=== PATIENT | female | born 1990 | race Caucasian/White ===

== ENCOUNTER 2023-03-30 03:16 | Emergency (ER) | payer OTHER, SELFPAY ==
[2023-03-30] VITALS (15 sets, daily range): BP systolic 124–138; BP diastolic 71–82; PULSE 99–169; RESP 16–43; TEMP 36.8–37.1; O2SAT 92–99; BMI 41.6
--- NOTE | 2023-03-30 03:21 | ED_ITS ---
HPI - General Adult General Chief complaint: Altered Mental Status Stated complaint: rapid HR, chest burn, oral THC Time Seen by Provider: 03/30/23 03:21 History of Present Illness HPI narrative: 33-year-old woman with a history of PTSD who reportedly had 2 alcohol drinks this evening, was doing some stretching felt a pop in her back laid down and her noted that her heart rate was in the 160 range. She reportedly had 60 mg of THC in drop or form earlier this evening which reportedly is not unusual. She presents with dramatic emotional lability, tachycardia, seems to be responding to internal stimuli. Heart rate 110-160 based on her emotional state at the moment. There was no signs of physical harm. Related Data Allergies Allergy/AdvReac Type Severity Reaction Status Date / Time amoxicillin Allergy Verified 03/30/23 04:18 Review of Systems Review of Systems Narrative: Pertinent positive and negative findings as per HPI Patient History Medical History (Updated 03/30/23 @ 04:38 by Ariella Jones MD) Depression with anxiety PCOS (polycystic ovarian syndrome) Chronic GERD PTSD (post-traumatic stress disorder) POTS (postural orthostatic tachycardia syndrome) Exam Initial Vital Signs Initial Vital Signs: Vital Signs Temperature 98.8 F 03/30/23 03:15 Pulse Rate 136 H 03/30/23 03:15 Respiratory Rate 24 03/30/23 03:15 Blood Pressure 132/82 03/30/23 03:15 Pulse Oximetry 96 03/30/23 03:15 Oxygen Delivery Method Room Air 03/30/23 03:15 General: BMI of 41.6, unable to sit still with dramatic effective behavior with complete range of emotions demonstrated within 30 seconds and then repeated HEENT: Moist mucous membranes, normal sclera with reactive pupils, Respiratory: Lungs are clear to auscultation, no wheezing no rales no rhonchi. Full and symmetrical air movement Cardiac: Mild tachycardia but no murmurs are appreciated Abdomen: Soft, nontender, good bowel tones, no flank pain Skin: Warm and dry, no rashes Neurologic: Grossly neurologically intact with no obvious asymmetries or abnormalities Extremities: No trauma, well perfused Psych: Emotional dysautonomia going from sobbing, to joyful ecstasy to anger to embarrassment to fear all within seconds of each other than recycling again Course Orders Ordered: Discontinued Medications Diazepam (Diazepam 10 Mg/2 Ml Syringe) 5 mg IV NOW ONE Stop: 03/30/23 03:32 Last Admin: 03/30/23 03:51 Dose: 5 mg Documented By: JACINDA Diazepam (Diazepam 10 Mg/2 Ml Syringe) 5 mg IV NOW ONE Stop: 03/30/23 04:32 Last Admin: 03/30/23 04:38 Dose: 5 mg Documented By: JACINDA Sodium Chloride (Normal Saline 0.9%) 1,000 mls @ 1,000 mls/hr IV BOLUS ONE Stop: 03/30/23 04:30 Last Infusion: 03/30/23 05:19 Dose: Infused Documented By: Admin: 03/30/23 03:51 Dose: 1,000 mls/hr Documented By: JACINDA Vital Signs Vital signs: Vital Signs - 8 hr 03/30/23 03:15 03/30/23 03:28 03/30/23 03:29 Temperature 98.8 F Pulse Rate 136 H 150 H Respiratory Rate 24 37 H Blood Pressure 132/82 124/72 Pulse Oximetry 96 98 Oxygen Delivery Method Room Air 03/30/23 03:29 03/30/23 03:30 03/30/23 03:58 Temperature Pulse Rate 167 H 169 H 130 H Respiratory Rate 42 H 43 H 32 H Blood Pressure Pulse Oximetry 95 97 95 Oxygen Delivery Method 03/30/23 03:58 03/30/23 04:00 03/30/23 04:00 Temperature Pulse Rate 129 H Respiratory Rate 19 Blood Pressure 129/76 130/73 Pulse Oximetry 93 Oxygen Delivery Method 03/30/23 04:30 03/30/23 04:30 03/30/23 05:00 Temperature Pulse Rate 127 H 136 H Respiratory Rate 18 20 Blood Pressure 135/71 Pulse Oximetry 96 94 Oxygen Delivery Method 03/30/23 05:30 03/30/23 06:00 Temperature Pulse Rate 121 H 114 H Respiratory Rate 18 19 Blood Pressure Pulse Oximetry 92 92 Oxygen Delivery Method Room Air Medical Decision Making Lab Data 03/30/23 04:00 03/30/23 04:00 Labs: Lab Results 03/30/23 03/30/23 Range/Units 04:00 05:18 WBC 10.2 (4.5-11.0) X10^3/uL RBC 4.50 (4.0-5.2) X10^6/uL Hgb 12.7 (12.0-16.0) g/dL Hct 38.1 (36-46) % MCV 84.7 (80-100) fL MCH 28.2 (26-34) PG MCHC 33.3 (30-36) % RDW 14.2 (11.6-14.8) % Plt Count 328 (150-400) X10^3/uL Neut % (Auto) 71.5 (50-75) % Lymph % (Auto) 18.9 L (25-40) % [place] % (Auto) 4.3 (3-14) % Eos % (Auto) 3.5 (2-4) % Baso % (Auto) 1.8 (0-2) % Neut # (Auto) 7300 H (5958-4696) /uL Lymph # (Auto) 1900 (5752-3464) /uL [place] # (Auto) 400 (0-900) /uL Eos # (Auto) 400 (0-450) /uL Baso # (Auto) 200 H (0-100) /uL Sodium 138 (137-145) mmol/L Potassium 4.0 (3.4-5.1) mmol/L Chloride 105 (98-107) mmol/L Carbon Dioxide 25 (22-32) mmol/L BUN 12 (7-17) mg/dL Creatinine 0.66 (0.52-1.04) mg/dL Estimated GFR > 60 (>60) mL/min BUN/Creatinine Ratio 18.2 (6-22) Glucose 140 H (70-100) mg/dL Calcium 9.4 (8.4-10.2) mg/dL Total Bilirubin 0.3 (0.2-1.3) mg/dL AST 25 (14-36) IU/L ALT 32 (<35) IU/L Alkaline Phosphatase 45 (38-126) U/L Total Protein 7.7 (6.3-8.2) g/dL Albumin 4.2 (3.5-5.0) g/dL Globulin 3.5 (1.7-4.1) g/dL Albumin/Globulin Ratio 1.2 (1.0-2.8) U Opiates 300ng/mL cut Negative (Negative) Ur Oxycodone Screen Negative (Negative) Urine Methadone Screen Negative (Negative) Ur Barbiturates Screen Negative (Negative) U Tricyclic Antidepress Negative (Negative) Ur Phencyclidine Scrn Negative (Negative) Ur Amphetamines Screen Negative (Negative) U Methamphetamines Scrn Negative (Negative) Ur MDMA Scrn (Ecstasy) Negative (Negative) U Benzodiazepines Scrn Negative (Negative) Urine Cocaine Screen Negative (Negative) U Marijuana (THC) Screen Positive H (Negative) Urine pH Normal (Normal) Urine Specific [place] Normal (Normal) Ethyl Alcohol < 10 ( - 10) mg/dL Ur Creatinine Normal (Normal) Point of Care Testing Test Results Negative Urine Dip Bedside Urine Glucose Negative Bedside Urine Bilirubin - Negative Bedside Urine Ketone - Negative Urine Specific [place] 1.020 Bedside Urine Occult Blood - Negative Bedside Urine pH 6.0 Bedside Urine Protein - Negative Bedside Urine Urobilinogen - Negative Bedside Urine Nitrite - Negative Bedside Urine Leukocytes - Negative Esterase Point of care testing: Point of Care Testing Test Results Negative Urine Dip Bedside Urine Glucose Negative Bedside Urine Bilirubin - Negative Bedside Urine Ketone - Negative Urine Specific [place] 1.020 Bedside Urine Occult Blood - Negative Bedside Urine pH 6.0 Bedside Urine Protein - Negative Bedside Urine Urobilinogen - Negative Bedside Urine Nitrite - Negative Bedside Urine Leukocytes - Negative Esterase MDM Narrative Medical decision making narrative: CC: Rapid heart rate with dramatic emotional instability Complicating co-morbidities: Alcohol use, regular THC use Data collected from: patient, medic, Social determinants of health that may influence the patients condition: Marijuana use with very large doses of THC Medical records reviewed: Medical records from [facility] for new patient visit January 29, 2023 are reviewed. Indicates patient is wheelchair bound with a history of PTSD, pots syndrome, PCOS, reflux, dysautonomia, depression, anxiety, herniated disc. Patient was seen in the emergency department at [facility] on February 03 with complaints of left shoulder pain, there is no indication that she was in a wheelchair at that time. Apparently had had an MR of the shoulder at [facility] which was reviewed. She was given oxycodone small prescription and shot of Toradol in the emergency department and discharged home. Notes from [facility] on January 23 are reviewed. They state that they just moved from [place]. The patient had 100 mg marijuana edible and then noted that she had significant tachycardia. She was incontinent of stool vomited and went to the emergency department for further evaluation. Differential considered: Acute intoxication, acute psychosis Exam documented above, pertinent findings include: Dramatic emotional lability from yelling at the top of her lungs to almost magical surprise to sobbing uncontrollably all within a minute. Lab Test results independently reviewed as above. Pertinent findings: CBC is unremarkable Chemistries are reassuring Alcohol level is undetectable Independently reviewed EKG: pre-hospital EKG shows sinus tachycardia at a rate of 150. Poor baseline. No acute ischemic changes Treatments: IV fluids, 5 mg of parenteral Valium. Valium is repeated Re-evaluations: After fluids initial 5 mg of Valium patient is still having dramatic affect and behavior. Will try another 5 mg of Valium Discussion: After the 2nd dose of Valium patient has finally been able to get sleep. Her heart rate has come down nicely. Care is reviewed with her and we agreed to allow her to sleep for another hour so. I am not sure why she is had such an adverse reaction with such dramatic emotional lability to the combination of marijuana and alcohol and emotional stressors from this evening. At this time she does seem like she is doing better. Recommended avoiding quite such high doses of THC. At this point there is no evidence of acute psychiatric issue that would require further evaluation or hospitalization. She is safe for discharge home Discharge Plan Departure Patient Disposition: Home Clinical Impression: Cannabis intoxication delirium Activity Restrictions/Additional Instructions: Thank you for coming in tonight I am not quite sure why you had such a dramatic reaction to the combination of stressors, marijuana and alcohol this evening. You are given a total of 10 mg of IV diazepam and that did help you get to sleep which seemed to make a nice difference in calming the emotional distress. I would recommend trying to get some sleep over the course of this morning. It may be a good idea to stick with slightly smaller doses of THC if you continue to choose to use this If you find that you are getting worse or develop any new symptoms, please feel free to return to the emergency department for further evaluation. Referrals: Provider,Anthony ISRAEL [Primary Care Provider] - Stand Alone Forms: Patient Portal/API
[2023-03-30] MEDS: diazePAM 10 MG/2 ML SYRINGE 5 MG IV ×2 (03:51→04:38)
[2023-03-30] MEDS: SODIUM CHLORIDE 0.9% 1,000 ML 1000 ML IV (03:51)
[2023-03-30 04:11] LABS: Add Manual Diff / Slide Review NO; Basophils Absolute Auto 200 /uL (0-100); Basophils Percent Auto 1.8 % (0-2); Eosinophils Absolute Auto 400 /uL (0-450); Eosinophils Percent Auto 3.5 % (2-4); Hematocrit 38.1 % (36-46); Hemoglobin 12.7 g/dL (12.0-16.0); Lymphocytes Absolute Auto 1900 /uL (1100-4500); Lymphocytes Percent Auto 18.9 % (25-40); Mean Corpuscular HGB Conc 33.3 % (30-36); Mean Corpuscular Hemoglobin 28.2 PG (26-34); Mean Corpuscular Volume 84.7 fL (80-100); Monocytes Absolute Auto 400 /uL (0-900); Monocytes Percent Auto 4.3 % (3-14); Neutrophils Absolute Auto 7300 /uL (1500-7000); Neutrophils Percent Auto 71.5 % (50-75); Platelet Count 328 X10^3/uL (150-400); Red Cell Distribution Width 14.2 % (11.6-14.8); White Blood Cell Count 10.2 X10^3/uL (4.5-11.0)
[2023-03-30 04:21] LABS: Alanine Aminotransferase 32 IU/L (<35); Albumin 4.2 g/dL (3.5-5.0); Albumin Globulin Ratio 1.2 (1.0-2.8); Alkaline Phosphatase 45 U/L (38-126); Aspartate Aminotransferase 25 IU/L (14-36); BUN Creatinine Ratio 18.2 (6-22); Bilirubin Total 0.3 mg/dL (0.2-1.3); Blood Urea Nitrogen 12 mg/dL (7-17); Calcium 9.4 mg/dL (8.4-10.2); Carbon Dioxide 25 mmol/L (22-32); Chloride 105 mmol/L (98-107); Estimated Glomerular Filt Rate > 60 mL/min (>60); Globulin 3.5 g/dL (1.7-4.1); Glucose 140 mg/dL (70-100); HEMOLYSIS 24 (0-50); Sodium 138 mmol/L (137-145); Total Protein 7.7 g/dL (6.3-8.2)
[2023-03-30 04:22] LABS: Ethanol (ETOH) < 10 mg/dL
[2023-03-30 05:52] LABS: UR Morphine/Opiate cutoff 300 Negative (Negative); Ur Creatinine Normal (Normal); Ur Specific Gravity Normal (Normal); Urine Amphetamines Negative (Negative); Urine Barbiturates Negative (Negative); Urine Benzodiazepines Negative (Negative); Urine Cocaine Negative (Negative); Urine MDMA Negative (Negative); Urine Methadone Negative (Negative); Urine Methamphetamines Negative (Negative); Urine Oxycodone Negative (Negative); Urine Phencyclidine Negative (Negative); Urine Tetrahydrocannabinol Positive (Negative); Urine Tricyclic Antidepressant Negative (Negative); Urine pH Normal (Normal)
== END 2023-03-30 08:22 | disposition home or self-care (01) ==
PROVIDERS: Emergency Provider Emergency Medicine
DX: F12.921 Cannabis use, unspecified with intoxication delirium (principal)
CPT/HCPCS: 36415; 80053; 80305; 80320; 81003; 81025; 85025; 96374; 96376; 99284; J3360